=== PATIENT | male | born 1990 | race Caucasian/White ===

== ENCOUNTER 2025-01-12 21:26 | Emergency (ER) | payer MEDICAID ==
[~2025-01-12] VITALS: Ht 170.2 cm; Wt 88.9 kg
[2025-01-12 22:04] VITALS: O2SAT 98
[2025-01-12 22:05] VITALS: BP 143/97; PULSE 70; RESP 18; TEMP 36.8; O2SAT 99
[2025-01-13 00:22] LABS: BASOPHILS % 0.4 % (0.0-2.0); EOSINOPHILS % 0.7 % (0.0-5.0); HEMATOCRIT. 43.6 % (42.0-52.0); HEMOGLOBIN. 14.3 g/dL (14.0-18.0); LYMPHOCYTES % 31.1 % (20.0-50.0); MEAN CORPUSCULAR HEMOGLOBIN 29.5 pg (28.0-32.0); MEAN CORPUSCULAR HGB CONC 32.9 g/dL (31.0-37.0); MEAN CORPUSCULAR VOLUME 89.7 fL (80.0-94.0); MEAN PLATELET VOLUME 7.5 fl (7.4-10.4); MONOCYTES % 4.6 % (2.0-8.0); NEUTROPHILS % 63.2 % (40.0-76.0); PLATELET 328 x1000/uL (130-400); RED BLOOD CELL COUNT 4.86 mill/uL (4.7-6.1); RED CELL DISTRIBUTION WIDTH 14.3 % (11.6-14.6); WHITE BLOOD COUNT 11.2 x1000/uL (4.5-11.0)
[2025-01-13 00:23] LABS: DIFFERENTIAL COMMENT 1
[2025-01-13 00:28] LABS: CHLORIDE 105 mEq/L (98-107); SODIUM 143 mEq/L (136-145)
[2025-01-13 00:29] LABS: CALCIUM 9.3 mg/dL (8.7-10.4); CARBON DIOXIDE 30 mEq/L (21-32)
[2025-01-13 00:34] LABS: CREATININE 0.8 mg/dL (0.6-1.3); GLUCOSE 123 mg/dL (70-105); UREA NITROGEN BLOOD 5 mg/dL (9-23)
[2025-01-13] MEDS: KETOROLAC 30MG/ML VIAL IM STA (01:22)
[2025-01-13 01:45] LABS: ALANINE AMINOTRANSFERASE 47 IU/L (10-49); ALBUMIN 4.4 g/dL (3.2-4.8); ASPARTATE AMINOTRANSFERASE 23 IU/L (<34); BILIRUBIN DIRECT < 0.1 mg/dL (<=3.0); BILIRUBIN TOTAL 0.3 mg/dL (0.1-1.0)
[2025-01-13 01:46] LABS: PROTEIN TOTAL 7.7 g/dL (6.0-8.3)
[2025-01-13 03:01] LABS: CLARITY URINE CLEAR (CLEAR); COLOR URINE YELLOW (YELLOW); GLUCOSE URINE NEGATIVE (NEGATIVE); KETONES URINE NEGATIVE (NEGATIVE); LEUKOCYTE ESTERASE URINE NEGATIVE (NEGATIVE); NITRITE URINE NEGATIVE (NEGATIVE); OCCULT BLOOD URINE NEGATIVE (NEGATIVE); PH URINE 6.5 (4.5-8.0); PROTEIN URINE NEGATIVE (NEGATIVE); SPECIFIC GRAVITY URINE 1.012 (1.005-1.030); UROBILINOGEN URINE 0.2 E.U./dL (0.2-1.0)
[2025-01-13] MEDS ORDERED: FAMO-135 MT (03:38)
== END 2025-01-13 04:25 | disposition home or self-care (01) ==
LOC: ER 21:26
DX: K80.20 Calculus of gallbladder without cholecystitis without obstruction (principal); Z98.890 Other specified postprocedural states
CPT/HCPCS: 99285; 80076; 80048; 83690; 85025; 36415; 76705; 81003; 96372; J1885; A6449